=== PATIENT | female | born 1985 | race American Indian/Alaskan Native ===

== ENCOUNTER 2018-08-18 09:54 | Inpatient (IN) | payer MEDICAID ==
[2018-08-18 11:17] LABS: Hematocrit 36.9 % (30.3-42.9); Hemoglobin 12.5 gm/dl (10.1-14.3); Mean Corpuscular HGB Conc 34 % (30-34); Mean Corpuscular Volume 89 fl (79-97); Platelet Count 307 K/mm3 (140-440); Red Blood Count 4.16 M/mm3 (3.65-5.03); Red Cell Distribution Width 14.3 % (13.2-15.2)
[2018-08-18 12:13] LABS: Alanine Aminotransferase 17 units/L (7-56); Uric Acid 5.8 mg/dL (3.5-7.6)
[2018-08-18 12:46] LABS: Creatinine 24 Hour,Urine 1.9 (0.8-2.8); Creatinine,Urine 92.4 mg/dL (0.1-20.0)
[2018-08-18] MEDS ORDERED: ZOFRAN IV PRN (14:13)
[2018-08-18] MEDS ORDERED: MAGNESIUM SULFATE 4GM/100ML 4 GM/100 ML BAG IV ONE (14:13)
[2018-08-18] MEDS ORDERED: AMBIEN PO PRN (14:13)
[2018-08-18] MEDS ORDERED: DEEP SEA NS PRN (14:13)
[2018-08-18] MEDS ORDERED: COLACE PO PRN (14:13)
[2018-08-18] MEDS: LACTATED RINGERS 1,000 ML IV SCH (17:01)
[2018-08-18] MEDS: CELESTONE SOLUSPAN IM SCH (17:03)
[2018-08-18] MEDS: MAGNESIUM SULFATE 40GM/1000ML 40 GM/1,000 ML BAG IV SCH (17:22)
--- NOTE | 2018-08-18 18:41 | History and Physical Report ---
History of Present Illness Date of examination: 08/18/18 Date of admission: 08/18/18 14:13 Chief complaint: sent from office for elevated BP, 24 hr urine return to be sent to lab History of present illness: Menstrual History Regularity: regular Duration: 5 LMP: 12/23/2017 LMP reliability: definite LMP character: normal test type: urine test Date: 07/04/2018 BC at conception: none EDC Calculations LMP: 09/29/2018 EDC Confirmation: 09/29/2018 Gestational Age: 27 4/7 weeks Past History : 2 Term Births: 1 Premature Births: 0 Living Children: 1 Para: 1 Mult. Births: 0 Prev : 0 Aborta: 0 Elect. Ab: 0 Spont. Ab: 0 Ectopics: 0 # 1 Delivery date: 10/28/2007 Weeks Gestation: 38 labor: no Delivery type: Hours of labor: 48 Anesthesia type: epidural Delivery location: [place] Infant Sex: Female weight: 6-6 Name: Deanna Comments: Induction for abnormal testing Past Medical History: Negative Past Medical History Past Surgical History: Cholecystectomy (2008) Family History Summary: Other family member - Has No Family History of Ovarvian Cancer - Entered On: 07/04/2018 Other family member - Has No Family History of Colon Cancer - Entered On: 019 Other family member - Has Family History of Pancreatic Cancer - Entered On: 07/04/2018 Other family member - Has Family History of Hypertension - Entered On: 07/04/2018 Other family member - Has Family History of Diabetes - Entered On: 07/04/2018 Other family member - Has Family History of Depression - Entered On: 07/04/2018 Other family member - Has Family History of Coronary Heart Disease - Entered On: 07/04/2018 Other family member - Has Family History Breast Cancer - Entered On: 07/04/2018 General Comments - FH: Lupus Social History: Marital Status: Single Children: 1 Occupation: unemployed daycare Risk Factors: Smoked Tobacco Use: Current every day smoker Cigarettes: Yes -- 1 pack(s) per day, Year started: 2006 Years smoked: 12 Counseled to quit/cut down: yes Drug use: no HIV high-risk behavior: low risk Alcohol use: yes Drinks per day: social Dietary Counseling: pn yes PAP Smear History: Date of Last PAP Smear: 02/20/2018 Results: normal Past Medical History Surgery (Non-baby counselor): Cholecystectomy (2008) Abnormal PAP: positive, ?cryo Uterine Anomaly: negative Family Hx: Lupus Social Hx: Marital Status: Single Children: 1 Occupation: unemployed daycare Infection History Hx of STD: none HIV Risk Eval: low risk Personal hx. of genital herpes: no Genetic History Congenital Heart Defect: Mom: no Dad: no Porter Disease: Mom: no Dad: no Thalassemia Mom: no Dad: no Neural Tube Defect Mom: no Dad: no Down's Syndrome Mom: no Dad: no Rajinder-Sachs Mom: no Dad: no Sickle Cell Disease/Trait Mom: no Dad: yes Hemophilia Mom: no Dad: no Muscular Dystrophy Mom: no Dad: no Cystic Fibrosis Mom: no Dad: no [place] Chorea Mom: no Dad: no Mental Retardation Mom: no Dad: no Fragile X Mom: no Dad: no Other Genetic/Chromosomal Disorder Mom: no Dad: no Child w/other defect Mom: no Dad: no Enviromental Exposures Xray Exposure: no Medication, drug, or alcohol use since LMP: yes Exposure to Cat Liter: yes Occupational Exposure to Children: daycare Current Allergies (reviewed today): No known allergies Past History Past Medical History: other (see HPI) Past Surgical History: other (see HPI) [employer] History: other (see HPI) Family/Genetic History: other (see HPI) Social history: other (see HPI) - Obstetrical History : 3 Medications and Allergies Allergies Allergy/AdvReac Type Severity Reaction Status Date / Time No Known Allergies Allergy Unverified 08/18/18 10:05 Active Meds: Active Medications Acetaminophen (Tylenol) 650 mg PO Q4H PRN PRN Reason: Pain MILD(1-3)/Fever >100.5/PEPPER Betamethasone Acet/Betameth SodPhos (Celestone Soluspan) 12 mg IM Q24H CHAPARRITA Stop: 08/19/18 15:01 Last Admin: 08/18/18 17:03 Dose: 12 mg Documented by: Docusate Sodium (Colace) 100 mg PO Q12H PRN PRN Reason: Constipation Lactated Ringer's (Lactated Ringers) 1,000 mls @ 125 mls/hr IV DIRECT CHAPARRITA Last Admin: 08/18/18 17:01 Dose: 125 mls/hr Documented by: Magnesium Sulfate (Magnesium Sulfate 40gm/1000ml) 40 gm in 1,000 mls @ 50 mls/hr IV DIRECT CHAPARRITA Last Admin: 08/18/18 17:22 Dose: 2 gm/hr, 50 mls/hr Documented by: Multivitamins/Iron/Calcium ( Vitamin) 1 each PO QDAY CHAPARRITA Ondansetron HCl (Zofran) 4 mg IV Q6H PRN PRN Reason: Nausea And Vomiting Sodium Chloride (Deep Sea) 2 spray NS Q4H PRN PRN Reason: Congestion Zolpidem Tartrate (Ambien) 10 mg PO ONCE PRN PRN Reason: Sleep Stop: 08/18/18 23:59 Review of Systems All systems: negative - Vital Signs Vital signs: Vital Signs Pulse BP 77 172/100 08/18/18 10:45 08/18/18 10:45 Temp Pulse Resp BP Pulse Ox 72 171/93 99 08/18/18 18:37 08/18/18 18:27 08/18/18 18:37 - Physical Exam Breasts: Cardiovascular: Regular rate, Normal S1, Normal S2 Lungs: Positive: Clear to auscultation, Normal air movement Abdomen: Positive: normal appearance, soft, normal bowel sounds. Negative: distention, tenderness Genitourinary (Female): Positive: normal external genitalia, normal perenium Vulva: both: normal Vagina: Positive: normal moisture. Negative: discharge Cervix: Negative: lesion, discharge Uterus: Positive: normal size, normal contour Adnexa: both: normal Anus/Rectum: Positive: normal perianal skin. Negative: rectal mass, hemorrhoids Extremities: Positive: normal Deep Tendon Reflex Grade: Normal +2 - Obstetrical FHR: auscultation normal Uterine Contraction Monitor Mode: External Uterine Contraction Pattern: Absent Results Result Diagrams: 08/18/18 10:37 08/18/18 10:37 Abnormal lab results 08/18/18 08/18/18 Range/Units 08:26 10:37 Creatinine 0.6 L (0.7-1.2) mg/dL Urine Creatinine 92.4 H (0.1-20.0) mg/dL Ur Total Protein 24 Hr 420.00 H (2-200) mg/dL Urine Total Protein 20 H (5-11.8) mg/dL All other labs normal. Assessment and Plan Patient sent from office visit for elevated BP in office and return of 24 hour urine collection to be resulted in lab. 24 hr protein level elevated. Pt ad mitted for BMZ series, magnesium for neuroprotection. MFM consult input. Patient reports feeling well, she denies any complaints, PEPPER ,visual disturbances, RUQ pain, epigastric pain, contractions, LOF< or VB +FM. Abdomen palpates soft. No contractions on TOCO. FHTs category 1 at this time. Some elevated BPs noted. Consult with Dr. Latham, will order one time dose of IV hydralazine, if BP remains elevates, will reevaluate, but likely begin cervidil induction. Reviewed current POC with patient, questions encouraged and answered. Will continue to monitor.
[2018-08-18] MEDS ORDERED: APRESOLINE IV ONE ×2 (19:01→21:45)
--- NOTE | 2018-08-18 23:43 | Ultrasound Report ---
Limited obstetric ultrasound INDICATION: Assess position FINDINGS: 2 images were obtained. Single viable intrauterine is seen, heart rate is 152. Fe tiera lie is cephalic. CONCLUSION: lie is cephalic. Signer Name: Srinivasa Roberts MD Signed: 08/18/2018 11:39 PM Workstation Name: [id number]
[2018-08-19] MEDS ORDERED: CERVIDIL VG ONE (03:00)
--- NOTE | 2018-08-19 03:00 | Event Note ---
Date: 08/19/18 BPs remain elevated despite one time dose of IV hydralazine ordered by Dr. Latham. Pt remains asymptomatic, she denies any PEPPER, visual disturbances, PUQ or epigastric pain. Assessment WNL. Order for cervidil induction to begin per Dr. Latham. DWP updated POC. She agrees to proceed with cervidil.
--- NOTE | 2018-08-19 03:13 | Event Note ---
Date: 08/19/18 reviewed recent BPs with Dr. Latham, order to hold cervidil for now d/t BPs WNL, pt asymptomatic.
--- NOTE | 2018-08-19 07:53 | Progress Note ---
Assessment and Plan 33 y/o @ 34+1 with limited care. pre-e dx by 24hr urine returned to hospital yesterday, TP 420. b/p's 130-150's/70-80's. Pt denies hx HTN. Most recent mag sulfate level 4.4. Pt denies epigastric pain or visual changes, she c/o PEPPER rates 2/10. pt states she feels its r/t lack of sleep. She has not had dose of tylenol. Will give dose and see if PEPPER resolves. Blood work reviewed NL. AMFM consult ordered, RN aware. Continue current management and await [facility] recommendations. - Patient Problems (1) 34 weeks gestation of Current Visit: Yes Status: Acute (2) BMI 50.0-59.9, adult Current Visit: Yes Status: Acute (3) Pre-eclampsia in third trimester Current Visit: Yes Status: Acute Plan to address problem: AMFM consult ordered Subjective - Subjective Date of service: 08/19/18 Principal diagnosis: IUP 34+1; Pre-e, Mag Patient reports: new complaints (PEPPER 2/10), movement normal, no loss of fluid, no vaginal bleeding, no contractions Objective - Vital Signs Vital Signs: Vital Signs - 12hr 08/18/18 08/18/18 08/18/18 19:56 20:01 20:06 Temperature Pulse Rate 85 90 79 Respiratory Rate Blood Pressure Blood Pressure [Left] O2 Sat by Pulse 98 99 100 Oximetry 08/18/18 08/18/18 08/18/18 20:11 20:25 20:27 Temperature 97.9 F Pulse Rate 79 72 77 Respiratory 20 Rate Blood Pressure 177/93 Blood Pressure 177/93 [Left] O2 Sat by Pulse 98 99 97 Oximetry 08/18/18 08/18/18 08/18/18 20:30 20:35 20:40 Temperature Pulse Rate 87 75 76 Respiratory Rate Blood Pressure 176/100 Blood Pressure [Left] O2 Sat by Pulse 99 98 98 Oximetry 08/18/18 08/18/18 08/18/18 20:45 20:50 20:55 Temperature Pulse Rate 83 77 75 Respiratory Rate Blood Pressure Blood Pressure [Left] O2 Sat by Pulse 98 97 97 Oximetry 08/18/18 08/18/18 08/18/18 20:57 21:00 21:05 Temperature Pulse Rate 83 79 78 Respiratory Rate Blood Pressure 170/76 Blood Pressure [Left] O2 Sat by Pulse 88 97 97 Oximetry 08/18/18 08/18/18 08/18/18 21:10 21:15 21:20 Temperature Pulse Rate 76 75 81 Respiratory Rate Blood Pressure Blood Pressure [Left] O2 Sat by Pulse 97 97 98 Oximetry 08/18/18 08/18/18 08/18/18 21:25 21:26 21:27 Temperature Pulse Rate 81 73 73 Respiratory 20 Rate Blood Pressure 141/79 Blood Pressure 141/79 [Left] O2 Sat by Pulse 97 92 Oximetry 08/18/18 08/18/18 08/18/18 21:30 21:35 21:40 Temperature Pulse Rate 87 73 78 Respiratory Rate Blood Pressure Blood Pressure [Left] O2 Sat by Pulse 98 97 97 Oximetry 08/18/18 08/18/18 08/18/18 21:45 21:49 21:50 Temperature Pulse Rate 97 H 108 H 70 Respiratory Rate Blood Pressure Blood Pressure [Left] O2 Sat by Pulse 97 94 96 Oximetry 08/18/18 08/18/18 08/18/18 21:52 21:55 21:56 Temperature Pulse Rate 75 78 75 Respiratory Rate Blood Pressure 166/83 158/79 Blood Pressure [Left] O2 Sat by Pulse 96 Oximetry 08/18/18 08/18/18 08/18/18 22:00 22:05 22:10 Temperature Pulse Rate 80 83 78 Respiratory Rate Blood Pressure Blood Pressure [Left] O2 Sat by Pulse 96 97 98 Oximetry 08/18/18 08/18/18 08/18/18 22:15 22:20 22:25 Temperature Pulse Rate 84 82 78 Respiratory Rate Blood Pressure Blood Pressure [Left] O2 Sat by Pulse 97 97 97 Oximetry 08/18/18 08/18/18 08/18/18 22:27 22:30 22:35 Temperature Pulse Rate 86 85 84 Respiratory Rate Blood Pressure 165/89 Blood Pressure [Left] O2 Sat by Pulse 90 98 98 Oximetry 08/18/18 08/18/18 08/18/18 22:40 22:45 22:50 Temperature Pulse Rate 80 86 78 Respiratory Rate Blood Pressure Blood Pressure [Left] O2 Sat by Pulse 97 98 97 Oximetry 08/18/18 08/18/18 08/18/18 22:55 22:57 23:00 Temperature Pulse Rate 75 75 81 Respiratory Rate Blood Pressure 175/82 Blood Pressure 175/82 [Left] O2 Sat by Pulse 98 97 97 Oximetry 08/18/18 08/18/18 08/18/18 23:05 23:08 23:10 Temperature Pulse Rate 89 73 70 Respiratory Rate Blood Pressure Blood Pressure [Left] O2 Sat by Pulse 97 93 96 Oximetry 08/18/18 08/18/18 08/18/18 23:15 23:20 23:22 Temperature Pulse Rate 81 77 82 Respiratory Rate Blood Pressure Blood Pressure [Left] O2 Sat by Pulse 96 96 94 Oximetry 08/18/18 08/18/18 08/18/18 23:25 23:27 23:30 Temperature Pulse Rate 67 68 79 Respiratory Rate Blood Pressure 167/82 Blood Pressure [Left] O2 Sat by Pulse 99 97 Oximetry 08/18/18 08/18/18 08/18/18 23:35 23:40 23:57 Temperature 98.2 F Pulse Rate 80 79 80 Respiratory 20 Rate Blood Pressure 176/83 Blood Pressure 176/83 [Left] O2 Sat by Pulse 96 96 Oximetry 08/18/18 08/19/18 08/19/18 23:58 00:04 00:09 Temperature Pulse Rate 83 82 76 Respiratory Rate Blood Pressure 176/83 170/81 155/74 Blood Pressure [Left] O2 Sat by Pulse Oximetry 08/19/18 08/19/18 08/19/18 00:13 00:20 00:27 Temperature Pulse Rate 77 85 80 Respiratory Rate Blood Pressure 159/74 166/79 171/83 Blood Pressure [Left] O2 Sat by Pulse Oximetry 08/19/18 08/19/18 08/19/18 00:38 00:41 00:46 Temperature Pulse Rate 82 89 77 Respiratory Rate Blood Pressure 170/81 Blood Pressure [Left] O2 Sat by Pulse 97 97 Oximetry 08/19/18 08/19/18 08/19/18 00:51 00:56 00:57 Temperature Pulse Rate 79 80 82 Respiratory Rate Blood Pressure 175/84 Blood Pressure [Left] O2 Sat by Pulse 97 88 Oximetry 08/19/18 08/19/18 08/19/18 01:01 01:06 01:11 Temperature Pulse Rate 84 93 H 86 Respiratory Rate Blood Pressure Blood Pressure [Left] O2 Sat by Pulse 97 97 97 Oximetry 08/19/18 08/19/18 08/19/18 01:13 01:16 01:21 Temperature Pulse Rate 85 84 87 Respiratory Rate Blood Pressure 141/81 Blood Pressure 141/81 [Left] O2 Sat by Pulse 97 97 97 Oximetry 08/19/18 08/19/18 08/19/18 01:26 01:31 01:36 Temperature Pulse Rate 88 92 H 93 H Respiratory Rate Blood Pressure 154/82 Blood Pressure [Left] O2 Sat by Pulse 91 97 97 Oximetry 08/19/18 08/19/18 08/19/18 01:41 01:46 01:51 Temperature Pulse Rate 88 91 H 89 Respiratory Rate Blood Pressure Blood Pressure [Left] O2 Sat by Pulse 97 97 94 Oximetry 08/19/18 08/19/18 08/19/18 01:52 01:56 02:01 Temperature Pulse Rate 86 95 H 87 Respiratory Rate Blood Pressure 143/81 153/81 Blood Pressure 143/81 [Left] O2 Sat by Pulse 95 95 97 Oximetry 08/19/18 08/19/18 08/19/18 02:06 02:11 02:16 Temperature Pulse Rate 92 H 89 78 Respiratory Rate Blood Pressure Blood Pressure [Left] O2 Sat by Pulse 98 98 95 Oximetry 08/19/18 08/19/18 08/19/18 02:21 02:26 02:31 Temperature Pulse Rate 82 86 83 Respiratory Rate Blood Pressure 151/77 Blood Pressure [Left] O2 Sat by Pulse 96 92 96 Oximetry 08/19/18 08/19/18 08/19/18 02:36 02:41 02:46 Temperature Pulse Rate 82 81 79 Respiratory Rate Blood Pressure Blood Pressure [Left] O2 Sat by Pulse 97 97 96 Oximetry 08/19/18 08/19/18 08/19/18 02:51 02:52 02:56 Temperature Pulse Rate 91 H 90 84 Respiratory Rate Blood Pressure 144/73 Blood Pressure [Left] O2 Sat by Pulse 94 94 89 Oximetry 08/19/18 08/19/18 08/19/18 03:01 03:06 03:11 Temperature Pulse Rate 91 H 95 H 92 H Respiratory Rate Blood Pressure Blood Pressure [Left] O2 Sat by Pulse 95 95 95 Oximetry 08/19/18 08/19/18 08/19/18 03:16 03:21 03:26 Temperature Pulse Rate 92 H 94 H 98 H Respiratory Rate Blood Pressure Blood Pressure [Left] O2 Sat by Pulse 95 95 96 Oximetry 08/19/18 08/19/18 08/19/18 03:31 03:36 03:41 Temperature Pulse Rate 89 94 H 91 H Respiratory Rate Blood Pressure Blood Pressure [Left] O2 Sat by Pulse 97 97 97 Oximetry 08/19/18 08/19/18 08/19/18 03:46 03:51 03:56 Temperature Pulse Rate 93 H 94 H 91 H Respiratory Rate Blood Pressure Blood Pressure [Left] O2 Sat by Pulse 97 96 96 Oximetry 08/19/18 08/19/18 08/19/18 04:01 04:06 04:11 Temperature Pulse Rate 94 H 91 H 85 Respiratory Rate Blood Pressure Blood Pressure [Left] O2 Sat by Pulse 96 97 98 Oximetry 08/19/18 08/19/18 08/19/18 04:16 04:21 04:23 Temperature Pulse Rate 83 86 68 Respiratory Rate Blood Pressure Blood Pressure [Left] O2 Sat by Pulse 98 98 89 Oximetry 08/19/18 08/19/18 08/19/18 04:27 04:28 04:32 Temperature 98.1 F Pulse Rate 86 74 74 Respiratory 18 Rate Blood Pressure 149/79 Blood Pressure 149/79 [Left] O2 Sat by Pulse 93 98 98 Oximetry 08/19/18 08/19/18 08/19/18 04:37 04:42 04:47 Temperature Pulse Rate 75 81 80 Respiratory Rate Blood Pressure Blood Pressure [Left] O2 Sat by Pulse 98 98 98 Oximetry 08/19/18 08/19/18 08/19/18 04:52 04:57 05:02 Temperature Pulse Rate 77 78 82 Respiratory Rate Blood Pressure Blood Pressure [Left] O2 Sat by Pulse 98 98 97 Oximetry 08/19/18 08/19/18 08/19/18 05:07 05:12 05:17 Temperature Pulse Rate 85 78 88 Respiratory Rate Blood Pressure Blood Pressure [Left] O2 Sat by Pulse 97 97 97 Oximetry 08/19/18 08/19/18 08/19/18 05:22 05:27 05:32 Temperature Pulse Rate 85 77 83 Respiratory Rate Blood Pressure 139/76 Blood Pressure 139/76 [Left] O2 Sat by Pulse 98 97 98 Oximetry 08/19/18 08/19/18 08/19/18 05:37 05:42 05:47 Temperature Pulse Rate 82 79 83 Respiratory Rate Blood Pressure Blood Pressure [Left] O2 Sat by Pulse 98 98 98 Oximetry 08/19/18 08/19/18 08/19/18 05:52 05:57 06:02 Temperature Pulse Rate 85 67 86 Respiratory Rate Blood Pressure Blood Pressure [Left] O2 Sat by Pulse 98 98 98 Oximetry 08/19/18 08/19/18 08/19/18 06:13 06:18 06:23 Temperature Pulse Rate 76 78 81 Respiratory Rate Blood Pressure Blood Pressure [Left] O2 Sat by Pulse 98 96 96 Oximetry 08/19/18 08/19/18 08/19/18 06:28 07:34 07:39 Temperature Pulse Rate 76 85 87 Respiratory Rate Blood Pressure 147/78 146/73 Blood Pressure [Left] O2 Sat by Pulse 100 100 Oximetry 08/19/18 08/19/18 07:44 07:49 Temperature Pulse Rate 81 82 Respiratory Rate Blood Pressure Blood Pressure [Left] O2 Sat by Pulse 98 98 Oximetry - Exam Breasts: normal Cardiovascular: Regular rate Lungs: Clear to auscultation Abdomen: Present: normal appearance, soft, normal bowel sounds Vulva: both: normal Uterus: Present: normal FHR: auscultation normal, category 1 Uterine Contraction Monitor Mode: External Uterine Contraction Pattern: Absent Uterine Tone Measurement Phase: Resting Extremities: normal Deep Tendon Reflex Grade: Normal +2 (neg clonus) - Labs Labs: Abnormal Labs 08/18/18 08/18/18 08/18/18 08:26 10:37 23:06 Creatinine 0.6 L Magnesium 4.20 H Urine Creatinine 92.4 H Ur Total Protein 24 Hr 420.00 H Urine Total Protein 20 H 08/19/18 05:21 Creatinine Magnesium 4.40 H Urine Creatinine Ur Total Protein 24 Hr Urine Total Protein Laboratory Results - last 24 hr 08/18/18 08/18/18 08/18/18 08:26 10:37 10:37 WBC 9.2 RBC 4.16 Hgb 12.5 Hct 36.9 MCV 89 MCH 30 MCHC 34 RDW 14.3 Plt Count 307 Creatinine 0.6 L Estimated GFR > 60 Uric Acid 5.8 Magnesium AST 16 ALT 17 Lactate Dehydrogenase 168 Urine Total Volume 2100 Urine Creatinine 92.4 H Ur Creatinine 24 Hour 1.9 Ur Total Protein 24 Hr 420.00 H Urine Total Protein 20 H Blood Type Antibody Screen 08/18/18 08/18/18 08/19/18 23:06 23:06 05:21 WBC RBC Hgb Hct MCV MCH MCHC RDW Plt Count Creatinine Estimated GFR Uric Acid Magnesium 4.20 H 4.40 H AST ALT Lactate Dehydrogenase Urine Total Volume Urine Creatinine Ur Creatinine 24 Hour Ur Total Protein 24 Hr Urine Total Protein Blood Type A POSITIVE Antibody Screen Negative
[2018-08-19] MEDS: TYLENOL PO PRN ×2 (08:10→22:41)
[2018-08-19] MEDS ORDERED: CELESTONE SOLUSPAN IM NR ×2 (09:56→17:00)
--- NOTE | 2018-08-19 09:56 | Progress Note ---
Assessment and Plan - Patient Problems (1) 34 weeks gestation of Current Visit: Yes Status: Acute (2) BMI 50.0-59.9, adult Current Visit: Yes Status: Acute (3) Pre-eclampsia in third trimester Current Visit: Yes Status: Acute Plan to address problem: With severe features(PEPPER and elevate BP's) will proceed with induction. Will give second dose of steriods now. Diagnosis and plan of care explained, questions encouraged and answered, she voiced understanding and agrees with plan of care. Subjective - Subjective Date of service: 08/19/18 Principal diagnosis: IUP 34+1; Preeclampsia with severe features Interval history: PEPPER better. Per patient no history of CHTN, BP's' have been normal thru . She denies RUQ pain or visual changes Patient reports: new complaints (PEPPER 03/23), movement normal, no loss of fluid, no vaginal bleeding, no contractions Objective - Vital Signs Vital Signs: Vital Signs - 12hr 08/18/18 08/18/18 08/18/18 22:00 22:05 22:10 Temperature Pulse Rate 80 83 78 Respiratory Rate Blood Pressure Blood Pressure [Left] O2 Sat by Pulse 96 97 98 Oximetry 08/18/18 08/18/18 08/18/18 22:15 22:20 22:25 Temperature Pulse Rate 84 82 78 Respiratory Rate Blood Pressure Blood Pressure [Left] O2 Sat by Pulse 97 97 97 Oximetry 08/18/18 08/18/18 08/18/18 22:27 22:30 22:35 Temperature Pulse Rate 86 85 84 Respiratory Rate Blood Pressure 165/89 Blood Pressure [Left] O2 Sat by Pulse 90 98 98 Oximetry 08/18/18 08/18/18 08/18/18 22:40 22:45 22:50 Temperature Pulse Rate 80 86 78 Respiratory Rate Blood Pressure Blood Pressure [Left] O2 Sat by Pulse 97 98 97 Oximetry 08/18/18 08/18/18 08/18/18 22:55 22:57 23:00 Temperature Pulse Rate 75 75 81 Respiratory Rate Blood Pressure 175/82 Blood Pressure 175/82 [Left] O2 Sat by Pulse 98 97 97 Oximetry 08/18/18 08/18/18 08/18/18 23:05 23:08 23:10 Temperature Pulse Rate 89 73 70 Respiratory Rate Blood Pressure Blood Pressure [Left] O2 Sat by Pulse 97 93 96 Oximetry 08/18/18 08/18/18 08/18/18 23:15 23:20 23:22 Temperature Pulse Rate 81 77 82 Respiratory Rate Blood Pressure Blood Pressure [Left] O2 Sat by Pulse 96 96 94 Oximetry 08/18/18 08/18/18 08/18/18 23:25 23:27 23:30 Temperature Pulse Rate 67 68 79 Respiratory Rate Blood Pressure 167/82 Blood Pressure [Left] O2 Sat by Pulse 99 97 Oximetry 08/18/18 08/18/18 08/18/18 23:35 23:40 23:57 Temperature 98.2 F Pulse Rate 80 79 80 Respiratory 20 Rate Blood Pressure 176/83 Blood Pressure 176/83 [Left] O2 Sat by Pulse 96 96 Oximetry 08/18/18 08/19/18 08/19/18 23:58 00:04 00:09 Temperature Pulse Rate 83 82 76 Respiratory Rate Blood Pressure 176/83 170/81 155/74 Blood Pressure [Left] O2 Sat by Pulse Oximetry 08/19/18 08/19/18 08/19/18 00:13 00:20 00:27 Temperature Pulse Rate 77 85 80 Respiratory Rate Blood Pressure 159/74 166/79 171/83 Blood Pressure [Left] O2 Sat by Pulse Oximetry 08/19/18 08/19/18 08/19/18 00:38 00:41 00:46 Temperature Pulse Rate 82 89 77 Respiratory Rate Blood Pressure 170/81 Blood Pressure [Left] O2 Sat by Pulse 97 97 Oximetry 08/19/18 08/19/18 08/19/18 00:51 00:56 00:57 Temperature Pulse Rate 79 80 82 Respiratory Rate Blood Pressure 175/84 Blood Pressure [Left] O2 Sat by Pulse 97 88 Oximetry 08/19/18 08/19/18 08/19/18 01:01 01:06 01:11 Temperature Pulse Rate 84 93 H 86 Respiratory Rate Blood Pressure Blood Pressure [Left] O2 Sat by Pulse 97 97 97 Oximetry 08/19/18 08/19/18 08/19/18 01:13 01:16 01:21 Temperature Pulse Rate 85 84 87 Respiratory Rate Blood Pressure 141/81 Blood Pressure 141/81 [Left] O2 Sat by Pulse 97 97 97 Oximetry 08/19/18 08/19/18 08/19/18 01:26 01:31 01:36 Temperature Pulse Rate 88 92 H 93 H Respiratory Rate Blood Pressure 154/82 Blood Pressure [Left] O2 Sat by Pulse 91 97 97 Oximetry 08/19/18 08/19/18 08/19/18 01:41 01:46 01:51 Temperature Pulse Rate 88 91 H 89 Respiratory Rate Blood Pressure Blood Pressure [Left] O2 Sat by Pulse 97 97 94 Oximetry 08/19/18 08/19/18 08/19/18 01:52 01:56 02:01 Temperature Pulse Rate 86 95 H 87 Respiratory Rate Blood Pressure 143/81 153/81 Blood Pressure 143/81 [Left] O2 Sat by Pulse 95 95 97 Oximetry 08/19/18 08/19/18 08/19/18 02:06 02:11 02:16 Temperature Pulse Rate 92 H 89 78 Respiratory Rate Blood Pressure Blood Pressure [Left] O2 Sat by Pulse 98 98 95 Oximetry 08/19/18 08/19/18 08/19/18 02:21 02:26 02:31 Temperature Pulse Rate 82 86 83 Respiratory Rate Blood Pressure 151/77 Blood Pressure [Left] O2 Sat by Pulse 96 92 96 Oximetry 08/19/18 08/19/18 08/19/18 02:36 02:41 02:46 Temperature Pulse Rate 82 81 79 Respiratory Rate Blood Pressure Blood Pressure [Left] O2 Sat by Pulse 97 97 96 Oximetry 08/19/18 08/19/18 08/19/18 02:51 02:52 02:56 Temperature Pulse Rate 91 H 90 84 Respiratory Rate Blood Pressure 144/73 Blood Pressure [Left] O2 Sat by Pulse 94 94 89 Oximetry 08/19/18 08/19/18 08/19/18 03:01 03:06 03:11 Temperature Pulse Rate 91 H 95 H 92 H Respiratory Rate Blood Pressure Blood Pressure [Left] O2 Sat by Pulse 95 95 95 Oximetry 08/19/18 08/19/18 08/19/18 03:16 03:21 03:26 Temperature Pulse Rate 92 H 94 H 98 H Respiratory Rate Blood Pressure Blood Pressure [Left] O2 Sat by Pulse 95 95 96 Oximetry 08/19/18 08/19/18 08/19/18 03:31 03:36 03:41 Temperature Pulse Rate 89 94 H 91 H Respiratory Rate Blood Pressure Blood Pressure [Left] O2 Sat by Pulse 97 97 97 Oximetry 07/09/19 07/09/19 07/09/19 03:46 03:51 03:56 Temperature Pulse Rate 93 H 94 H 91 H Respiratory Rate Blood Pressure Blood Pressure [Left] O2 Sat by Pulse 97 96 96 Oximetry 08/19/18 08/19/18 08/19/18 04:01 04:06 04:11 Temperature Pulse Rate 94 H 91 H 85 Respiratory Rate Blood Pressure Blood Pressure [Left] O2 Sat by Pulse 96 97 98 Oximetry 08/19/18 08/19/18 08/19/18 04:16 04:21 04:23 Temperature Pulse Rate 83 86 68 Respiratory Rate Blood Pressure Blood Pressure [Left] O2 Sat by Pulse 98 98 89 Oximetry 08/19/18 08/19/18 08/19/18 04:27 04:28 04:32 Temperature 98.1 F Pulse Rate 86 74 74 Respiratory 18 Rate Blood Pressure 149/79 Blood Pressure 149/79 [Left] O2 Sat by Pulse 93 98 98 Oximetry 08/19/18 08/19/18 08/19/18 04:37 04:42 04:47 Temperature Pulse Rate 75 81 80 Respiratory Rate Blood Pressure Blood Pressure [Left] O2 Sat by Pulse 98 98 98 Oximetry 08/19/18 08/19/18 08/19/18 04:52 04:57 05:02 Temperature Pulse Rate 77 78 82 Respiratory Rate Blood Pressure Blood Pressure [Left] O2 Sat by Pulse 98 98 97 Oximetry 08/19/18 08/19/18 08/19/18 05:07 05:12 05:17 Temperature Pulse Rate 85 78 88 Respiratory Rate Blood Pressure Blood Pressure [Left] O2 Sat by Pulse 97 97 97 Oximetry 08/19/18 08/19/18 08/19/18 05:22 05:27 05:32 Temperature Pulse Rate 85 77 83 Respiratory Rate Blood Pressure 139/76 Blood Pressure 139/76 [Left] O2 Sat by Pulse 98 97 98 Oximetry 08/19/18 08/19/18 08/19/18 05:37 05:42 05:47 Temperature Pulse Rate 82 79 83 Respiratory Rate Blood Pressure Blood Pressure [Left] O2 Sat by Pulse 98 98 98 Oximetry 08/19/18 08/19/18 08/19/18 05:52 05:57 06:02 Temperature Pulse Rate 85 67 86 Respiratory Rate Blood Pressure Blood Pressure [Left] O2 Sat by Pulse 98 98 98 Oximetry 08/19/18 08/19/18 08/19/18 06:13 06:18 06:23 Temperature Pulse Rate 76 78 81 Respiratory Rate Blood Pressure Blood Pressure [Left] O2 Sat by Pulse 98 96 96 Oximetry 08/19/18 08/19/18 08/19/18 06:28 07:34 07:35 Temperature 98.4 F Pulse Rate 76 85 Respiratory 20 Rate Blood Pressure 147/78 146/73 Blood Pressure [Left] O2 Sat by Pulse 100 99 Oximetry 08/19/18 08/19/18 08/19/18 07:39 07:44 07:49 Temperature Pulse Rate 87 81 82 Respiratory Rate Blood Pressure Blood Pressure [Left] O2 Sat by Pulse 100 98 98 Oximetry 08/19/18 08/19/18 08/19/18 07:54 07:59 08:04 Temperature Pulse Rate 80 82 83 Respiratory Rate Blood Pressure Blood Pressure [Left] O2 Sat by Pulse 98 98 98 Oximetry 08/19/18 08/19/18 08/19/18 08:09 08:14 08:19 Temperature Pulse Rate 81 82 79 Respiratory Rate Blood Pressure Blood Pressure [Left] O2 Sat by Pulse 98 96 98 Oximetry 08/19/18 08/19/18 08/19/18 08:24 08:27 08:29 Temperature Pulse Rate 83 86 85 Respiratory Rate Blood Pressure 156/73 Blood Pressure [Left] O2 Sat by Pulse 98 90 97 Oximetry 08/19/18 08/19/18 08/19/18 08:34 08:39 08:44 Temperature Pulse Rate 77 84 81 Respiratory Rate Blood Pressure Blood Pressure [Left] O2 Sat by Pulse 97 97 97 Oximetry 08/19/18 08/19/18 08/19/18 08:49 08:54 08:59 Temperature Pulse Rate 76 84 80 Respiratory Rate Blood Pressure Blood Pressure [Left] O2 Sat by Pulse 98 97 97 Oximetry 08/19/18 08/19/18 08/19/18 09:04 09:09 09:14 Temperature Pulse Rate 80 83 60 Respiratory Rate Blood Pressure Blood Pressure [Left] O2 Sat by Pulse 97 97 73 L Oximetry 08/19/18 08/19/18 08/19/18 09:19 09:20 09:25 Temperature Pulse Rate 67 68 76 Respiratory Rate Blood Pressure Blood Pressure [Left] O2 Sat by Pulse 80 L 73 L 99 Oximetry 08/19/18 08/19/18 08/19/18 09:28 09:31 09:36 Temperature Pulse Rate 92 H 78 84 Respiratory Rate Blood Pressure 177/88 Blood Pressure [Left] O2 Sat by Pulse 91 99 97 Oximetry 08/19/18 08/19/18 08/19/18 09:38 09:39 09:40 Temperature Pulse Rate 62 80 80 Respiratory Rate Blood Pressure 171/92 Blood Pressure [Left] O2 Sat by Pulse 87 99 Oximetry 08/19/18 08/19/18 09:45 09:50 Temperature Pulse Rate 77 82 Respiratory Rate Blood Pressure 146/67 Blood Pressure [Left] O2 Sat by Pulse 99 100 Oximetry - Exam Breasts: deferred Cardiovascular: Regular rate Lungs: Clear to auscultation, Normal air movement Abdomen: Present: normal appearance (obese), soft. Absent: tenderness Vulva: both: normal Uterus: Present: fundal height above umbilicus. Absent: tenderness FHR: category 1 Cervical Dilatation: 2 Cervical Effacement Percentage: 30 station: -2 Uterine Contraction Pattern: Absent Extremities: normal Deep Tendon Reflex Grade: Normal +2 (negative clonus) - Labs Labs: Abnormal Labs 08/18/18 08/18/18 08/18/18 08:26 10:37 23:06 Creatinine 0.6 L Magnesium 4.20 H Urine Creatinine 92.4 H Ur Total Protein 24 Hr 420.00 H Urine Total Protein 20 H 08/19/18 05:21 Creatinine Magnesium 4.40 H Urine Creatinine Ur Total Protein 24 Hr Urine Total Protein Laboratory Results - last 24 hr 08/18/18 08/18/18 08/18/18 08:26 10:37 10:37 WBC 9.2 RBC 4.16 Hgb 12.5 Hct 36.9 MCV 89 MCH 30 MCHC 34 RDW 14.3 Plt Count 307 Creatinine 0.6 L Estimated GFR > 60 Uric Acid 5.8 Magnesium AST 16 ALT 17 Lactate Dehydrogenase 168 Urine Total Volume 2100 Urine Creatinine 92.4 H Ur Creatinine 24 Hour 1.9 Ur Total Protein 24 Hr 420.00 H Urine Total Protein 20 H Blood Type Antibody Screen 08/18/18 08/18/18 08/19/18 23:06 23:06 05:21 WBC RBC Hgb Hct MCV MCH MCHC RDW Plt Count Creatinine Estimated GFR Uric Acid Magnesium 4.20 H 4.40 H AST ALT Lactate Dehydrogenase Urine Total Volume Urine Creatinine Ur Creatinine 24 Hour Ur Total Protein 24 Hr Urine Total Protein Blood Type A POSITIVE Antibody Screen Negative
[2018-08-19] MEDS ORDERED: PITOCin/NS 30 UNIT/500ML 30 UNITS/500 ML BAG IV SCH (10:00)
[2018-08-19] MEDS: PRENATAL VITAMIN PO SCH (10:13)
[2018-08-19] MEDS: CELESTONE SOLUSPAN IM SCH (10:37)
[2018-08-19] MEDS ORDERED: AMPICILLIN/NS 2 GM/100 ML 2 GM/100 ML BAG IV ONE (11:00)
--- NOTE | 2018-08-19 14:09 | Progress Note ---
Assessment and Plan discussed with pt pro/cons of AROM and IUPC placement, patient agreeable to procedure. Pt tolerated procedure well, moderate amount of clear fluid noted. IUPC placed without difficulty, tracing ctx well. RN to continue titrating pitocin as needed. may have epidural PRN. anticipate . Dr. Patton updated. - Patient Problems (1) 34 weeks gestation of Current Visit: Yes Status: Acute (2) BMI 50.0-59.9, adult Current Visit: Yes Status: Acute (3) Pre-eclampsia in third trimester Current Visit: Yes Status: Acute Subjective - Subjective Date of service: 08/19/18 Principal diagnosis: IUP 34+1; Preeclampsia with severe features Patient reports: loss of fluid, movement normal, contractions, no vaginal bleeding Objective - Vital Signs Vital Signs: Vital Signs - 12hr 08/19/18 08/19/18 08/19/18 02:11 02:16 02:21 Temperature Pulse Rate 89 78 82 Respiratory Rate Blood Pressure Blood Pressure [Left] O2 Sat by Pulse 98 95 96 Oximetry 08/19/18 08/19/18 08/19/18 02:26 02:31 02:36 Temperature Pulse Rate 86 83 82 Respiratory Rate Blood Pressure 151/77 Blood Pressure [Left] O2 Sat by Pulse 92 96 97 Oximetry 08/19/18 08/19/18 08/19/18 02:41 02:46 02:51 Temperature Pulse Rate 81 79 91 H Respiratory Rate Blood Pressure Blood Pressure [Left] O2 Sat by Pulse 97 96 94 Oximetry 08/19/18 08/19/18 08/19/18 02:52 02:56 03:01 Temperature Pulse Rate 90 84 91 H Respiratory Rate Blood Pressure 144/73 Blood Pressure [Left] O2 Sat by Pulse 94 89 95 Oximetry 08/19/18 08/19/18 08/19/18 03:06 03:11 03:16 Temperature Pulse Rate 95 H 92 H 92 H Respiratory Rate Blood Pressure Blood Pressure [Left] O2 Sat by Pulse 95 95 95 Oximetry 08/19/18 08/19/18 08/19/18 03:21 03:26 03:31 Temperature Pulse Rate 94 H 98 H 89 Respiratory Rate Blood Pressure Blood Pressure [Left] O2 Sat by Pulse 95 96 97 Oximetry 08/19/18 08/19/18 08/19/18 03:36 03:41 03:46 Temperature Pulse Rate 94 H 91 H 93 H Respiratory Rate Blood Pressure Blood Pressure [Left] O2 Sat by Pulse 97 97 97 Oximetry 08/19/18 08/19/18 08/19/18 03:51 03:56 04:01 Temperature Pulse Rate 94 H 91 H 94 H Respiratory Rate Blood Pressure Blood Pressure [Left] O2 Sat by Pulse 96 96 96 Oximetry 08/19/18 08/19/18 08/19/18 04:06 04:11 04:16 Temperature Pulse Rate 91 H 85 83 Respiratory Rate Blood Pressure Blood Pressure [Left] O2 Sat by Pulse 97 98 98 Oximetry 08/19/18 08/19/18 08/19/18 04:21 04:23 04:27 Temperature Pulse Rate 86 68 86 Respiratory Rate Blood Pressure Blood Pressure [Left] O2 Sat by Pulse 98 89 93 Oximetry 08/19/18 08/19/18 08/19/18 04:28 04:32 04:37 Temperature 98.1 F Pulse Rate 74 74 75 Respiratory 18 Rate Blood Pressure 149/79 Blood Pressure 149/79 [Left] O2 Sat by Pulse 98 98 98 Oximetry 08/19/18 08/19/18 08/19/18 04:42 04:47 04:52 Temperature Pulse Rate 81 80 77 Respiratory Rate Blood Pressure Blood Pressure [Left] O2 Sat by Pulse 98 98 98 Oximetry 08/19/18 08/19/18 08/19/18 04:57 05:02 05:07 Temperature Pulse Rate 78 82 85 Respiratory Rate Blood Pressure Blood Pressure [Left] O2 Sat by Pulse 98 97 97 Oximetry 08/19/18 08/19/18 08/19/18 05:12 05:17 05:22 Temperature Pulse Rate 78 88 85 Respiratory Rate Blood Pressure Blood Pressure [Left] O2 Sat by Pulse 97 97 98 Oximetry 08/19/18 08/19/18 08/19/18 05:27 05:32 05:37 Temperature Pulse Rate 77 83 82 Respiratory Rate Blood Pressure 139/76 Blood Pressure 139/76 [Left] O2 Sat by Pulse 97 98 98 Oximetry 08/19/18 08/19/18 08/19/18 05:42 05:47 05:52 Temperature Pulse Rate 79 83 85 Respiratory Rate Blood Pressure Blood Pressure [Left] O2 Sat by Pulse 98 98 98 Oximetry 08/19/18 08/19/18 08/19/18 05:57 06:02 06:13 Temperature Pulse Rate 67 86 76 Respiratory Rate Blood Pressure Blood Pressure [Left] O2 Sat by Pulse 98 98 98 Oximetry 08/19/18 08/19/18 08/19/18 06:18 06:23 06:28 Temperature Pulse Rate 78 81 76 Respiratory Rate Blood Pressure 147/78 Blood Pressure [Left] O2 Sat by Pulse 96 96 Oximetry 08/19/18 08/19/18 08/19/18 07:34 07:35 07:39 Temperature 98.4 F Pulse Rate 85 87 Respiratory 20 Rate Blood Pressure 146/73 Blood Pressure [Left] O2 Sat by Pulse 100 99 100 Oximetry 08/19/18 08/19/18 08/19/18 07:44 07:49 07:54 Temperature Pulse Rate 81 82 80 Respiratory Rate Blood Pressure Blood Pressure [Left] O2 Sat by Pulse 98 98 98 Oximetry 08/19/18 08/19/18 08/19/18 07:59 08:04 08:09 Temperature Pulse Rate 82 83 81 Respiratory Rate Blood Pressure Blood Pressure [Left] O2 Sat by Pulse 98 98 98 Oximetry 08/19/18 08/19/18 08/19/18 08:14 08:19 08:24 Temperature Pulse Rate 82 79 83 Respiratory Rate Blood Pressure Blood Pressure [Left] O2 Sat by Pulse 96 98 98 Oximetry 08/19/18 08/19/18 08/19/18 08:27 08:29 08:34 Temperature Pulse Rate 86 85 77 Respiratory Rate Blood Pressure 156/73 Blood Pressure [Left] O2 Sat by Pulse 90 97 97 Oximetry 08/19/18 08/19/18 08/19/18 08:39 08:44 08:49 Temperature Pulse Rate 84 81 76 Respiratory Rate Blood Pressure Blood Pressure [Left] O2 Sat by Pulse 97 97 98 Oximetry 08/19/18 08/19/18 08/19/18 08:54 08:59 09:04 Temperature Pulse Rate 84 80 80 Respiratory Rate Blood Pressure Blood Pressure [Left] O2 Sat by Pulse 97 97 97 Oximetry 08/19/18 08/19/18 08/19/18 09:09 09:14 09:19 Temperature Pulse Rate 83 60 67 Respiratory Rate Blood Pressure Blood Pressure [Left] O2 Sat by Pulse 97 73 L 80 L Oximetry 08/19/18 08/19/18 08/19/18 09:20 09:25 09:28 Temperature Pulse Rate 68 76 92 H Respiratory Rate Blood Pressure 177/88 Blood Pressure [Left] O2 Sat by Pulse 73 L 99 91 Oximetry 08/19/18 08/19/18 08/19/18 09:31 09:36 09:38 Temperature Pulse Rate 78 84 62 Respiratory Rate Blood Pressure Blood Pressure [Left] O2 Sat by Pulse 99 97 87 Oximetry 08/19/18 08/19/18 08/19/18 09:39 09:40 09:45 Temperature Pulse Rate 80 80 77 Respiratory Rate Blood Pressure 171/92 Blood Pressure [Left] O2 Sat by Pulse 99 99 Oximetry 08/19/18 08/19/18 08/19/18 09:50 09:56 10:00 Temperature Pulse Rate 82 79 79 Respiratory Rate Blood Pressure 146/67 Blood Pressure [Left] O2 Sat by Pulse 100 99 99 Oximetry 08/19/18 08/19/18 08/19/18 10:06 10:11 10:15 Temperature Pulse Rate 81 81 78 Respiratory Rate Blood Pressure Blood Pressure [Left] O2 Sat by Pulse 98 98 99 Oximetry 08/19/18 08/19/18 08/19/18 10:20 10:26 10:27 Temperature Pulse Rate 86 84 82 Respiratory Rate Blood Pressure 151/77 Blood Pressure [Left] O2 Sat by Pulse 99 98 90 Oximetry 08/19/18 08/19/18 08/19/18 10:31 10:36 10:40 Temperature Pulse Rate 83 86 85 Respiratory Rate Blood Pressure Blood Pressure [Left] O2 Sat by Pulse 98 98 96 Oximetry 08/19/18 08/19/18 08/19/18 10:46 10:51 10:55 Temperature Pulse Rate 87 87 88 Respiratory Rate Blood Pressure Blood Pressure [Left] O2 Sat by Pulse 98 98 98 Oximetry 08/19/18 08/19/18 08/19/18 11:01 11:06 11:11 Temperature Pulse Rate 83 87 79 Respiratory Rate Blood Pressure Blood Pressure [Left] O2 Sat by Pulse 98 99 98 Oximetry 08/19/18 08/19/18 08/19/18 11:16 11:20 11:26 Temperature Pulse Rate 80 81 81 Respiratory Rate Blood Pressure Blood Pressure [Left] O2 Sat by Pulse 98 98 97 Oximetry 08/19/18 08/19/18 08/19/18 11:27 11:28 11:31 Temperature Pulse Rate 79 81 81 Respiratory Rate Blood Pressure 164/86 Blood Pressure [Left] O2 Sat by Pulse 94 98 Oximetry 08/19/18 08/19/18 08/19/18 11:33 11:35 11:41 Temperature Pulse Rate 82 82 78 Respiratory Rate Blood Pressure 158/80 Blood Pressure [Left] O2 Sat by Pulse 98 96 Oximetry 08/19/18 08/19/18 08/19/18 11:46 11:50 11:55 Temperature Pulse Rate 78 78 89 Respiratory Rate Blood Pressure Blood Pressure [Left] O2 Sat by Pulse 96 98 97 Oximetry 08/19/18 08/19/18 08/19/18 12:00 12:05 12:10 Temperature Pulse Rate 82 81 84 Respiratory Rate Blood Pressure Blood Pressure [Left] O2 Sat by Pulse 96 98 96 Oximetry 08/19/18 08/19/18 08/19/18 12:15 12:20 12:25 Temperature Pulse Rate 82 83 86 Respiratory Rate Blood Pressure Blood Pressure [Left] O2 Sat by Pulse 96 96 98 Oximetry 08/19/18 08/19/18 08/19/18 12:27 12:30 12:35 Temperature Pulse Rate 88 89 82 Respiratory Rate Blood Pressure 152/80 Blood Pressure [Left] O2 Sat by Pulse 93 97 97 Oximetry 08/19/18 08/19/18 08/19/18 12:40 12:45 12:50 Temperature Pulse Rate 80 88 79 Respiratory Rate Blood Pressure Blood Pressure [Left] O2 Sat by Pulse 97 99 98 Oximetry 08/19/18 08/19/18 08/19/18 12:55 13:00 13:05 Temperature Pulse Rate 81 84 86 Respiratory Rate Blood Pressure Blood Pressure [Left] O2 Sat by Pulse 99 98 98 Oximetry 08/19/18 08/19/18 08/19/18 13:10 13:15 13:20 Temperature Pulse Rate 83 83 94 H Respiratory Rate Blood Pressure Blood Pressure [Left] O2 Sat by Pulse 99 98 98 Oximetry 08/19/18 08/19/18 08/19/18 13:25 13:28 13:30 Temperature Pulse Rate 95 H 89 91 H Respiratory Rate Blood Pressure 178/86 Blood Pressure [Left] O2 Sat by Pulse 99 99 Oximetry 08/19/18 08/19/18 08/19/18 13:35 13:40 13:45 Temperature Pulse Rate 88 85 87 Respiratory Rate Blood Pressure Blood Pressure [Left] O2 Sat by Pulse 99 99 100 Oximetry 08/19/18 08/19/18 08/19/18 13:50 13:55 13:59 Temperature Pulse Rate 92 H 83 79 Respiratory Rate Blood Pressure 150/72 Blood Pressure [Left] O2 Sat by Pulse 99 98 Oximetry 08/19/18 14:00 Temperature Pulse Rate 79 Respiratory Rate Blood Pressure Blood Pressure [Left] O2 Sat by Pulse 99 Oximetry - Exam Breasts: normal Cardiovascular: Regular rate Lungs: Clear to auscultation, Normal air movement Abdomen: Present: normal appearance, soft Vulva: both: normal FHR: auscultation normal, category 1 Uterine Contraction Monitor Mode: Internal Cervical Dilatation: 3 (AROM - IUPC placed without difficulty) Cervical Effacement Percentage: 80 station: -2 Uterine Contraction Pattern: Regular Uterine Tone Measurement Phase: Contraction Uterine Contraction Intensity: Mild Extremities: normal Deep Tendon Reflex Grade: Normal +2 - Labs Labs: Abnormal Labs 08/18/18 08/18/18 08/18/18 08:26 10:37 23:06 Creatinine 0.6 L Magnesium 4.20 H Urine Creatinine 92.4 H Ur Total Protein 24 Hr 420.00 H Urine Total Protein 20 H 08/19/18 08/19/18 05:21 09:46 Creatinine Magnesium 4.40 H 4.70 H Urine Creatinine Ur Total Protein 24 Hr Urine Total Protein Laboratory Results - last 24 hr 08/18/18 08/18/18 08/19/18 23:06 23:06 05:21 Magnesium 4.20 H 4.40 H Blood Type A POSITIVE Antibody Screen Negative 08/19/18 09:46 Magnesium 4.70 H Blood Type Antibody Screen
[2018-08-19] MEDS ORDERED: AMPICILLIN/NS 1 GM/50 ML 1 GM/50 ML BAG IV SCH (14:15)
[2018-08-19] MEDS: MAGNESIUM SULFATE 40GM/1000ML 40 GM/1,000 ML BAG IV SCH (14:42)
[2018-08-19] MEDS ORDERED: SUBLIMAZE IV ONE (14:46)
--- NOTE | 2018-08-19 14:58 | Anesthesia Consultation ---
Anesthesia Consult and Med Hx Date of service: 08/19/18 - Airway Anesthetic Teeth Evaluation: Good ROM Head & Neck: Adequate Mental/Hyoid Distance: Adequate Mallampati Class: Class II Intubation Access Assessment: Probably Good - Pulmonary Exam CTA: Yes - Cardiac Exam Cardiac Exam: RRR - Pre-Operative Health Status ASA Pre-Surgery Classification: ASA3 Proposed Anesthetic Plan: Epidural - Pulmonary Hx Smoking: Yes Hx Asthma: No Hx Respiratory Symptoms: No SOB: No COPD: No Home Oxygen Therapy: No Hx Pneumonia: No Hx Sleep Apnea: No - Cardiovascular System Hx Hypertension: Yes (PIH) Hx Coronary Artery Disease: No Hx Heart Attack/AMI: No Hx Angina: No Hx Percutaneous Transluminal Coronary Angioplasty (PTCA): No Hx Cardia Arrhythmia: No Hx Pacemaker: No Hx Internal Defibrillator: No Hx Valvular Heart Disease: No Hx Heart Murmur: No Hx Peripheral Vascular Disease: No - Central Nervous System Hx Neuromuscular Disorder: No Hx Seizures: No CVA: No Hx Back Pain: No Hx Psychiatric Problems: No - Gastrointestinal Hx Ulcer: No Hx Gastroesophageal Reflux Disease: Yes - Endocrine Hx Renal Disease: No Hx Cirrhosis: No Hx Liver Disease: No Hx Insulin Dependent Diabetes: No Hx Non-Insulin Dependent Diabetes: No Hx Thyroid Disease: No Hx Hypothyroidism: No Hx Hyperthyroidism: No - Hematic Hx Anemia: No Hx Sickle Cell Disease: No - Other Systems Hx Alcohol Use: No Hx Substance Use: No Hx Cancer: No Hx Obesity: Yes (BMI 53)
[2018-08-19] MEDS ORDERED: NARCAN 2 MG/2 ML IV PRN (14:59)
[2018-08-19] MEDS: LACTATED RINGERS 1,000 ML IV SCH (15:02)
[2018-08-19] MEDS ORDERED: CYTOTEC ONE (16:15)
[2018-08-19] MEDS ORDERED: METHERGINE IM ONE (16:15)
[2018-08-19] MEDS ORDERED: fentaNYL-BUPIV 2 MCG/ML-0.125% 200 MCG/100 ML BAG EPIDURAL SCH (17:00)
--- NOTE | 2018-08-19 18:31 | Progress Note ---
Assessment and Plan Pt c/o feeling ctx, denies feeling pressure at this time. Some variables noted in FHT, SVE now 9/100/0. NICU CN called and made aware of pending delivery. Anticipate . - Patient Problems (1) 34 weeks gestation of Current Visit: Yes Status: Acute (2) BMI 50.0-59.9, adult Current Visit: Yes Status: Acute (3) Pre-eclampsia in third trimester Current Visit: Yes Status: Acute Subjective - Subjective Date of service: 08/19/18 Principal diagnosis: IUP 34+1; Preeclampsia with severe features Patient reports: new complaints (cpmfortable with epidural), contractions, no vaginal bleeding Objective - Vital Signs Vital Signs: Vital Signs - 12hr 08/19/18 08/19/18 08/19/18 06:28 07:34 07:35 Temperature 98.4 F Pulse Rate 76 85 Respiratory 20 Rate Blood Pressure 147/78 146/73 O2 Sat by Pulse 100 99 Oximetry 08/19/18 08/19/18 08/19/18 07:39 07:44 07:49 Temperature Pulse Rate 87 81 82 Respiratory Rate Blood Pressure O2 Sat by Pulse 100 98 98 Oximetry 08/19/18 08/19/18 08/19/18 07:54 07:59 08:04 Temperature Pulse Rate 80 82 83 Respiratory Rate Blood Pressure O2 Sat by Pulse 98 98 98 Oximetry 08/19/18 08/19/18 08/19/18 08:09 08:14 08:19 Temperature Pulse Rate 81 82 79 Respiratory Rate Blood Pressure O2 Sat by Pulse 98 96 98 Oximetry 08/19/18 08/19/18 08/19/18 08:24 08:27 08:29 Temperature Pulse Rate 83 86 85 Respiratory Rate Blood Pressure 156/73 O2 Sat by Pulse 98 90 97 Oximetry 08/19/18 08/19/18 08/19/18 08:34 08:39 08:44 Temperature Pulse Rate 77 84 81 Respiratory Rate Blood Pressure O2 Sat by Pulse 97 97 97 Oximetry 08/19/18 08/19/18 08/19/18 08:49 08:54 08:59 Temperature Pulse Rate 76 84 80 Respiratory Rate Blood Pressure O2 Sat by Pulse 98 97 97 Oximetry 08/19/18 08/19/18 08/19/18 09:04 09:09 09:14 Temperature Pulse Rate 80 83 60 Respiratory Rate Blood Pressure O2 Sat by Pulse 97 97 73 L Oximetry 08/19/18 08/19/18 08/19/18 09:19 09:20 09:25 Temperature Pulse Rate 67 68 76 Respiratory Rate Blood Pressure O2 Sat by Pulse 80 L 73 L 99 Oximetry 08/19/18 08/19/18 08/19/18 09:28 09:31 09:36 Temperature Pulse Rate 92 H 78 84 Respiratory Rate Blood Pressure 177/88 O2 Sat by Pulse 91 99 97 Oximetry 08/19/18 08/19/18 08/19/18 09:38 09:39 09:40 Temperature Pulse Rate 62 80 80 Respiratory Rate Blood Pressure 171/92 O2 Sat by Pulse 87 99 Oximetry 08/19/18 08/19/18 08/19/18 09:45 09:50 09:56 Temperature Pulse Rate 77 82 79 Respiratory Rate Blood Pressure 146/67 O2 Sat by Pulse 99 100 99 Oximetry 08/19/18 08/19/18 08/19/18 10:00 10:06 10:11 Temperature Pulse Rate 79 81 81 Respiratory Rate Blood Pressure O2 Sat by Pulse 99 98 98 Oximetry 08/19/18 08/19/18 08/19/18 10:15 10:20 10:26 Temperature Pulse Rate 78 86 84 Respiratory Rate Blood Pressure O2 Sat by Pulse 99 99 98 Oximetry 08/19/18 08/19/18 08/19/18 10:27 10:31 10:36 Temperature Pulse Rate 82 83 86 Respiratory Rate Blood Pressure 151/77 O2 Sat by Pulse 90 98 98 Oximetry 08/19/18 08/19/18 08/19/18 10:40 10:46 10:51 Temperature Pulse Rate 85 87 87 Respiratory Rate Blood Pressure O2 Sat by Pulse 96 98 98 Oximetry 08/19/18 08/19/18 08/19/18 10:55 11:01 11:06 Temperature Pulse Rate 88 83 87 Respiratory Rate Blood Pressure O2 Sat by Pulse 98 98 99 Oximetry 08/19/18 08/19/18 08/19/18 11:11 11:16 11:20 Temperature Pulse Rate 79 80 81 Respiratory Rate Blood Pressure O2 Sat by Pulse 98 98 98 Oximetry 08/19/18 08/19/18 08/19/18 11:26 11:27 11:28 Temperature Pulse Rate 81 79 81 Respiratory Rate Blood Pressure 164/86 O2 Sat by Pulse 97 94 Oximetry 08/19/18 08/19/18 08/19/18 11:31 11:33 11:35 Temperature Pulse Rate 81 82 82 Respiratory Rate Blood Pressure 158/80 O2 Sat by Pulse 98 98 Oximetry 08/19/18 08/19/18 08/19/18 11:41 11:46 11:50 Temperature Pulse Rate 78 78 78 Respiratory Rate Blood Pressure O2 Sat by Pulse 96 96 98 Oximetry 08/19/18 08/19/18 08/19/18 11:55 12:00 12:05 Temperature Pulse Rate 89 82 81 Respiratory Rate Blood Pressure O2 Sat by Pulse 97 96 98 Oximetry 08/19/18 08/19/18 08/19/18 12:10 12:15 12:20 Temperature Pulse Rate 84 82 83 Respiratory Rate Blood Pressure O2 Sat by Pulse 96 96 96 Oximetry 08/19/18 08/19/18 08/19/18 12:25 12:27 12:30 Temperature 98.5 F Pulse Rate 86 88 89 Respiratory 20 Rate Blood Pressure 152/80 O2 Sat by Pulse 98 93 97 Oximetry 08/19/18 08/19/18 08/19/18 12:35 12:40 12:45 Temperature Pulse Rate 82 80 88 Respiratory Rate Blood Pressure O2 Sat by Pulse 97 97 99 Oximetry 08/19/18 08/19/18 08/19/18 12:50 12:55 13:00 Temperature Pulse Rate 79 81 84 Respiratory Rate Blood Pressure O2 Sat by Pulse 98 99 98 Oximetry 08/19/18 08/19/18 08/19/18 13:05 13:10 13:15 Temperature Pulse Rate 86 83 83 Respiratory Rate Blood Pressure O2 Sat by Pulse 98 99 98 Oximetry 08/19/18 08/19/18 08/19/18 13:20 13:25 13:28 Temperature Pulse Rate 94 H 95 H 89 Respiratory Rate Blood Pressure 178/86 O2 Sat by Pulse 98 99 Oximetry 08/19/18 08/19/18 08/19/18 13:30 13:35 13:40 Temperature Pulse Rate 91 H 88 85 Respiratory Rate Blood Pressure O2 Sat by Pulse 99 99 99 Oximetry 08/19/18 08/19/18 08/19/18 13:45 13:50 13:55 Temperature Pulse Rate 87 92 H 83 Respiratory Rate Blood Pressure O2 Sat by Pulse 100 99 98 Oximetry 08/19/18 08/19/18 08/19/18 13:59 14:00 14:05 Temperature Pulse Rate 79 79 91 H Respiratory Rate Blood Pressure 150/72 O2 Sat by Pulse 99 97 Oximetry 08/19/18 08/19/18 08/19/18 14:10 14:13 14:15 Temperature Pulse Rate 83 87 89 Respiratory Rate Blood Pressure O2 Sat by Pulse 97 94 93 Oximetry 08/19/18 08/19/18 08/19/18 14:20 14:25 14:27 Temperature Pulse Rate 100 H 81 82 Respiratory Rate Blood Pressure O2 Sat by Pulse 96 98 93 Oximetry 08/19/18 08/19/18 08/19/18 14:29 14:30 14:35 Temperature Pulse Rate 78 81 83 Respiratory Rate Blood Pressure 147/81 O2 Sat by Pulse 98 97 Oximetry 08/19/18 08/19/18 08/19/18 14:40 14:45 14:50 Temperature Pulse Rate 77 80 83 Respiratory Rate Blood Pressure O2 Sat by Pulse 97 96 97 Oximetry 08/19/18 08/19/18 08/19/18 14:55 15:00 15:05 Temperature 98.5 F Pulse Rate 86 83 87 Respiratory 21 Rate Blood Pressure O2 Sat by Pulse 96 96 97 Oximetry 08/19/18 08/19/18 08/19/18 15:10 15:15 15:20 Temperature Pulse Rate 87 89 97 H Respiratory Rate Blood Pressure O2 Sat by Pulse 98 98 98 Oximetry 08/19/18 08/19/18 08/19/18 15:25 15:28 15:30 Temperature Pulse Rate 95 H 86 85 Respiratory Rate Blood Pressure 146/87 O2 Sat by Pulse 98 88 96 Oximetry 08/19/18 08/19/18 08/19/18 15:35 15:36 15:40 Temperature Pulse Rate 84 92 H 81 Respiratory Rate Blood Pressure O2 Sat by Pulse 96 94 98 Oximetry 08/19/18 08/19/18 08/19/18 15:45 15:50 15:55 Temperature Pulse Rate 82 87 92 H Respiratory Rate Blood Pressure O2 Sat by Pulse 97 96 98 Oximetry 08/19/18 08/19/18 08/19/18 16:00 16:05 16:09 Temperature Pulse Rate 85 85 Respiratory Rate Blood Pressure O2 Sat by Pulse 97 98 81 L Oximetry 08/19/18 08/19/18 08/19/18 16:10 16:15 16:20 Temperature Pulse Rate 88 87 95 H Respiratory Rate Blood Pressure O2 Sat by Pulse 98 100 100 Oximetry 08/19/18 08/19/18 08/19/18 16:22 16:25 16:31 Temperature Pulse Rate 92 H 83 90 Respiratory Rate Blood Pressure O2 Sat by Pulse 84 99 100 Oximetry 08/19/18 08/19/18 08/19/18 16:36 16:46 16:48 Temperature Pulse Rate 73 96 H 54 L Respiratory Rate Blood Pressure O2 Sat by Pulse 97 100 78 L Oximetry 08/19/18 08/19/18 08/19/18 16:51 17:05 17:06 Temperature Pulse Rate 103 H 78 84 Respiratory Rate Blood Pressure 141/81 O2 Sat by Pulse 100 99 94 Oximetry 08/19/18 08/19/18 08/19/18 17:09 17:10 17:21 Temperature Pulse Rate 85 85 75 Respiratory Rate Blood Pressure 143/78 O2 Sat by Pulse 87 96 Oximetry 08/19/18 08/19/18 08/19/18 17:24 17:26 17:31 Temperature Pulse Rate 86 81 77 Respiratory Rate Blood Pressure 120/56 O2 Sat by Pulse 100 100 Oximetry 08/19/18 08/19/18 08/19/18 17:36 17:38 17:41 Temperature Pulse Rate 86 79 79 Respiratory Rate Blood Pressure 132/57 O2 Sat by Pulse 100 100 Oximetry 08/19/18 08/19/18 08/19/18 17:46 17:51 17:54 Temperature Pulse Rate 75 80 77 Respiratory Rate Blood Pressure 126/58 O2 Sat by Pulse 100 100 Oximetry 08/19/18 08/19/18 08/19/18 17:56 18:01 18:06 Temperature Pulse Rate 73 73 73 Respiratory Rate Blood Pressure O2 Sat by Pulse 100 100 100 Oximetry 08/19/18 08/19/18 08/19/18 18:08 18:11 18:16 Temperature Pulse Rate 73 76 72 Respiratory Rate Blood Pressure 130/60 O2 Sat by Pulse 100 100 Oximetry 08/19/18 18:21 Temperature Pulse Rate 76 Respiratory Rate Blood Pressure O2 Sat by Pulse 99 Oximetry - Exam Breasts: normal Cardiovascular: Regular rate Lungs: Clear to auscultation, Normal air movement Abdomen: Present: normal appearance, soft Vulva: both: normal FHR: category 2 Uterine Contraction Monitor Mode: Internal Cervical Dilatation: 9 Cervical Effacement Percentage: 100 station: 0 Uterine Contraction Pattern: Regular Uterine Tone Measurement Phase: Contraction Uterine Contraction Intensity: Strong/Firm Extremities: normal Deep Tendon Reflex Grade: Normal +2 - Labs Labs: Abnormal Labs 08/18/18 08/18/18 08/18/18 08:26 10:37 23:06 Creatinine 0.6 L Magnesium 4.20 H Urine Creatinine 92.4 H Ur Total Protein 24 Hr 420.00 H Urine Total Protein 20 H 08/19/18 08/19/18 05:21 09:46 Creatinine Magnesium 4.40 H 4.70 H Urine Creatinine Ur Total Protein 24 Hr Urine Total Protein Laboratory Results - last 24 hr 08/18/18 08/18/18 08/19/18 23:06 23:06 05:21 Magnesium 4.20 H 4.40 H Blood Type A POSITIVE Antibody Screen Negative 08/19/18 09:46 Magnesium 4.70 H Blood Type Antibody Screen
[2018-08-19] MEDS ORDERED: PITOCin/NS 20 UNIT/1000ML DRIP 20,000 MILLIUNITS/1,000 ML BAG IV ONE (18:42)
--- NOTE | 2018-08-19 19:09 | Procedure Note ---
OB Delivery Note - Delivery Date of Delivery: 08/19/18 ( male ) [employer] Finisher: SHANIQUE ALVAREZ Estimated blood loss: 300cc - Vaginal Delivery presentation: vertex Delivery position: OA Intrapartum events: preeclampsia Delivery induction: oxytocin Delivery augmentation: rupture of membranes, pitocin Delivery monitor: external FHT, internal uterine Route of delivery: Delivery placenta: spontaneous Delivery cord: nuchal cord (loose x 1), 3 umbilical vessels Episiotomy: none Delivery laceration: none Anesthesia: epidural Delivery comments: Male infant del over intact perineum, cord clamped and cut, handed off to awaiting NICU team at [facility]. Placenta del intact and complete, sent to pathology. no laceration to repair. Infant taken to NICU in stable condition. Apgars 8/9, EBL 300. Mother to remain on labor and delivery x 24h on mag sulfate. - A at 1 minute: 8 at 5 minutes: 9 Infant Gender: Male (4#1)
[2018-08-19] MEDS ORDERED: LANSINOH TP PRN (19:10)
[2018-08-19] MEDS ORDERED: MILK OF MAGNESIA PO PRN (19:10)
[2018-08-19] MEDS ORDERED: DULCOLAX PR PRN (19:10)
[2018-08-19] MEDS ORDERED: BENADRYL PO PRN (19:10)
[2018-08-19] MEDS ORDERED: TUCKS PAD TP PRN (19:10)
[2018-08-19] MEDS ORDERED: PHENERGAN PO PRN (19:10)
[2018-08-19] MEDS ORDERED: PITOCin/NS 20 UNIT/1000ML DRIP 20 UNITS/1,000 ML BAG IV SCH ×2 (20:00→21:00)
[2018-08-19] MEDS ORDERED: SODIUM CHLORIDE FLUSH SYRINGE 10 ML IV NR (20:00)
[2018-08-19] MEDS: IBUPROFEN PO SCH (21:03)
[2018-08-20] MEDS: IBUPROFEN PO SCH ×3 (03:45→17:00)
[2018-08-20] MEDS: TYLENOL PO PRN ×2 (06:42→21:47)
[2018-08-20] MEDS: LACTATED RINGERS 1,000 ML IV SCH ×3 (06:43→10:23)
[2018-08-20] MEDS: MAGNESIUM SULFATE 40GM/1000ML 40 GM/1,000 ML BAG IV SCH ×2 (06:45→10:24)
--- NOTE | 2018-08-20 07:55 | Progress Note ---
Assessment and Plan PPD1 s/p . Patient resting in bed, reports pain of 0, comfortable, denies any complaints or concerns. Magnesium currently infusing. Kapoor in place, draining clear yellow urine. Fundus is firm, ML, U/1. VB is scant, patient denies any heavy bleeding or clots. Reviewed BPs with pt, 140s-160s/70s-80s, consult with Dr. Latham r/t possibility of initiating PO BP medication. Pt denies any PEPPER, visual disturbances, RUQ or epigastric pain. DTRs 2+. Assessment WNL. VSSAF. Most recent mag level 5.3 at 0051. Awaiting results of post delivery H&H and next mag level. Reviewed current POC with pt, mag to be discontinued 24 hrs post delivery, will continue to monitor BPs overnight and consider for discharge tomorrow. Patient verbalizes understanding. Pt reports infant remains in NICU, doing well. All questions addressed. Continue current POC. Subjective - Subjective Date of service: 08/20/18 Principal diagnosis: PPD1 s/p magnesium for PIH with severe features Interval history: Menstrual History Regularity: regular Duration: 5 LMP: 12/23/2017 LMP reliability: definite LMP character: normal test type: urine test Date: 07/04/2018 BC at conception: none EDC Calculations LMP: 09/29/2018 EDC Confirmation: 09/29/2018 Gestational Age: 27 4/7 weeks Past History : 2 Term Births: 1 Premature Births: 0 Living Children: 1 Para: 1 Mult. Births: 0 Prev : 0 Aborta: 0 Elect. Ab: 0 Spont. Ab: 0 Ectopics: 0 # 1 Delivery date: 10/28/2007 Weeks Gestation: 38 labor: no Delivery type: Hours of labor: 48 Anesthesia type: epidural Delivery location: [place] Infant Sex: Female weight: 6-6 Name: Deanna Comments: Induction for abnormal testing Past Medical History: Negative Past Medical History Past Surgical History: Cholecystectomy (2008) Family History Summary: Other family member - Has No Family History of Ovarvian Cancer - Entered On: 07/04/2018 Other family member - Has No Family History of Colon Cancer - Entered On: 07/04/2018 Other family member - Has Family History of Pancreatic Cancer - Entered On: 07/04/2018 Other family member - Has Family History of Hypertension - Entered On: 07/04/2018 Other family member - Has Family History of Diabetes - Entered On: 07/04/2018 Other family member - Has Family History of Depression - Entered On: 07/04/2018 Other family member - Has Family History of Coronary Heart Disease - Entered On: 07/04/2018 Other family member - Has Family History Breast Cancer - Entered On: 07/04/2018 General Comments - FH: Lupus Social History: Marital Status: Single Children: 1 Occupation: unemployed daycare Risk Factors: Smoked Tobacco Use: Current every day smoker Cigarettes: Yes -- 1 pack(s) per day, Year started: 2006 Years smoked: 12 Counseled to quit/cut down: yes Drug use: no HIV high-risk behavior: low risk Alcohol use: yes Drinks per day: social Dietary Counseling: pn yes PAP Smear History: Date of Last PAP Smear: 02/20/2018 Results: normal Past Medical History Surgery (Non-golf manager): Cholecystectomy (2008) Abnormal PAP: positive, ?cryo Uterine Anomaly: negative Family Hx: Lupus Social Hx: Marital Status: Single Children: 1 Occupation: unemployed daycare Infection History Hx of STD: none HIV Risk Eval: low risk Personal hx. of genital herpes: no Genetic History Congenital Heart Defect: Mom: no Dad: no Porter Disease: Mom: no Dad: no Thalassemia Mom: no Dad: no Neural Tube Defect Mom: no Dad: no Down's Syndrome Mom: no Dad: no Rajinder-Sachs Mom: no Dad: no Sickle Cell Disease/Trait Mom: no Dad: yes Hemophilia Mom: no Dad: no Muscular Dystrophy Mom: no Dad: no Cystic Fibrosis Mom: no Dad: no [place] Chorea Mom: no Dad: no Mental Retardation Mom: no Dad: no Fragile X Mom: no Dad: no Other Genetic/Chromosomal Disorder Mom: no Dad: no Child w/other defect Mom: no Dad: no Enviromental Exposures Xray Exposure: no Medication, drug, or alcohol use since LMP: yes Exposure to Cat Liter: yes Occupational Exposure to Children: daycare Current Allergies (reviewed today): No known allergies Patient reports: appetite normal, pain well controlled : in NICU Objective - Vital Signs Latest vital signs: Vital Signs Temp Pulse Resp BP Pulse Ox 08/20/18 07:41 70 98 08/20/18 06:46 72 148/84 08/20/18 05:46 75 144/78 08/20/18 04:46 75 160/83 08/20/18 03:46 70 167/91 08/20/18 03:45 81 173/100 08/20/18 02:46 73 143/72 08/20/18 01:46 79 145/76 08/20/18 01:45 97.3 F L 08/20/18 00:46 94 H 137/70 08/19/18 23:46 90 142/67 08/19/18 22:46 83 142/78 08/19/18 21:47 93 H 154/71 08/19/18 21:45 97.2 F L 08/19/18 20:45 96 H 140/84 99 08/19/18 19:06 76 140/67 08/19/18 19:00 98.4 F 20 08/19/18 18:54 81 167/72 08/19/18 18:41 85 98 08/19/18 18:39 91 H 146/68 08/19/18 18:36 92 H 100 08/19/18 18:31 89 100 08/19/18 18:26 81 100 08/19/18 18:21 76 99 08/19/18 18:16 72 100 08/19/18 18:11 76 100 08/19/18 18:08 73 130/60 08/19/18 18:06 73 100 08/19/18 18:01 73 100 08/19/18 17:56 73 100 08/19/18 17:54 77 126/58 08/19/18 17:51 80 100 08/19/18 17:46 75 100 08/19/18 17:41 79 100 08/19/18 17:38 79 132/57 08/19/18 17:36 86 100 08/19/18 17:31 77 100 08/19/18 17:26 81 100 08/19/18 17:24 86 120/56 08/19/18 17:21 75 96 08/19/18 17:10 85 87 08/19/18 17:09 85 143/78 08/19/18 17:06 84 141/81 94 08/19/18 17:05 78 99 08/19/18 17:00 98.5 F 20 08/19/18 16:51 103 H 100 08/19/18 16:48 54 L 78 L 08/19/18 16:46 96 H 100 08/19/18 16:36 73 97 08/19/18 16:31 90 100 08/19/18 16:25 83 99 08/19/18 16:22 92 H 84 08/19/18 16:20 95 H 100 08/19/18 16:15 87 100 08/19/18 16:10 88 98 08/19/18 16:09 81 L 08/19/18 16:05 85 98 08/19/18 16:00 85 97 08/19/18 15:55 92 H 98 08/19/18 15:50 87 96 08/19/18 15:45 82 97 08/19/18 15:40 81 98 08/19/18 15:36 92 H 94 08/19/18 15:35 84 96 08/19/18 15:30 85 96 08/19/18 15:28 86 146/87 88 08/19/18 15:25 95 H 98 08/19/18 15:20 97 H 98 08/19/18 15:15 89 98 08/19/18 15:10 87 98 08/19/18 15:05 87 97 08/19/18 15:00 98.5 F 83 21 96 08/19/18 14:55 86 96 08/19/18 14:50 83 97 08/19/18 14:45 80 96 08/19/18 14:40 77 97 08/19/18 14:35 83 97 08/19/18 14:30 81 98 08/19/18 14:29 78 147/81 08/19/18 14:27 82 93 08/19/18 14:25 81 98 08/19/18 14:20 100 H 96 08/19/18 14:15 89 93 08/19/18 14:13 87 94 08/19/18 14:10 83 97 08/19/18 14:05 91 H 97 08/19/18 14:00 79 99 08/19/18 13:59 79 150/72 08/19/18 13:55 83 98 08/19/18 13:50 92 H 99 08/19/18 13:45 87 100 08/19/18 13:40 85 99 08/19/18 13:35 88 99 08/19/18 13:30 91 H 99 08/19/18 13:28 89 178/86 08/19/18 13:25 95 H 99 08/19/18 13:20 94 H 98 08/19/18 13:15 83 98 08/19/18 13:10 83 99 08/19/18 13:05 86 98 08/19/18 13:00 84 98 08/19/18 12:55 81 99 08/19/18 12:50 79 98 08/19/18 12:45 88 99 08/19/18 12:40 80 97 08/19/18 12:35 82 97 08/19/18 12:30 98.5 F 89 20 97 08/19/18 12:27 88 152/80 93 08/19/18 12:25 86 98 08/19/18 12:20 83 96 08/19/18 12:15 82 96 08/19/18 12:10 84 96 08/19/18 12:05 81 98 08/19/18 12:00 82 96 08/19/18 11:55 89 97 08/19/18 11:50 78 98 08/19/18 11:46 78 96 08/19/18 11:41 78 96 08/19/18 11:35 82 98 08/19/18 11:33 82 158/80 08/19/18 11:31 81 98 08/19/18 11:28 81 164/86 08/19/18 11:27 79 94 08/19/18 11:26 81 97 08/19/18 11:20 81 98 08/19/18 11:16 80 98 08/19/18 11:11 79 98 08/19/18 11:06 87 99 08/19/18 11:01 83 98 08/19/18 10:55 88 98 08/19/18 10:51 87 98 08/19/18 10:46 87 98 08/19/18 10:40 85 96 08/19/18 10:36 86 98 08/19/18 10:31 83 98 08/19/18 10:27 82 151/77 90 08/19/18 10:26 84 98 08/19/18 10:20 86 99 08/19/18 10:15 78 99 08/19/18 10:11 81 98 08/19/18 10:06 81 98 08/19/18 10:00 79 99 08/19/18 09:56 79 99 08/19/18 09:50 82 146/67 100 08/19/18 09:45 77 99 08/19/18 09:40 80 99 08/19/18 09:39 80 171/92 08/19/18 09:38 62 87 08/19/18 09:36 84 97 08/19/18 09:31 78 99 08/19/18 09:28 92 H 177/88 91 08/19/18 09:25 76 99 08/19/18 09:20 68 73 L 08/19/18 09:19 67 80 L 08/19/18 09:14 60 73 L 08/19/18 09:09 83 97 08/19/18 09:04 80 97 08/19/18 08:59 80 97 08/19/18 08:54 84 97 08/19/18 08:49 76 98 08/19/18 08:44 81 97 08/19/18 08:39 84 97 08/19/18 08:34 77 97 08/19/18 08:29 85 97 08/19/18 08:27 86 156/73 90 08/19/18 08:24 83 98 08/19/18 08:19 79 98 08/19/18 08:14 82 96 08/19/18 08:09 81 98 08/19/18 08:04 83 98 08/19/18 07:59 82 98 08/19/18 07:54 80 98 08/19/18 07:49 82 98 Intake and Output 08/19/18 08/19/18 08/20/18 15:59 23:59 07:59 Intake Total 6199.254 8038 1342.5 Output Total 1999 550 1750 Balance -875.933 700 -407.5 Intake: IV 3466.946 7868 802.5 Lactated Ringers 1,000 ml 1000 @ 125 mls/hr IV DIRECT [facility] Rx#:[id number] MAGNESIUM SULFATE 40GM/ 1000 802.5 1000ML 40 gm In 1,000 ml @ 2 GM/HR 50 mls/hr IV DIRECT [facility] Rx#:[id number] PITOCin/NS 30 UNIT/500ML 24.067 30 units In 500 ml @ 4 MILLIUNITS/MIN 4 mls/hr IV TITR [facility] Rx#:[id number] Oral 100 250 540 Output: Urine 1999 550 1750 Indwelling Catheter 1999 550 1750 Other: Total, Intake Amount 100 250 540 Total, Output Amount 150 150 400 Estimated Blood Loss 300 - Exam Cardiovascular: Present: Regular rate, Normal S1, Normal S2 Lungs: Present: Clear to auscultation, Normal air movement Abdomen: Present: normal appearance, soft, normal bowel sounds Vulva: both: normal Uterus: Present: normal, firm, fundal height below umbilicus Extremities: Present: normal Deep Tendon Reflex Grade: Normal +2 - Labs Labs: Abnormal lab results 08/19/18 08/19/18 08/20/18 Range/Units 09:46 20:01 00:51 Magnesium 4.70 H 4.70 H 5.30 H (1.7-2.3) mg/dL
[2018-08-20 08:38] LABS: Hematocrit 36.6 % (30.3-42.9); Hemoglobin 12.2 gm/dl (10.1-14.3)
[2018-08-20] MEDS: NORMODYNE PO SCH ×2 (10:09→21:48)
[2018-08-20] MEDS: PRENATAL VITAMIN PO SCH (10:09)
[2018-08-20] MEDS ORDERED: M-M-R II VACCINE SUB-Q ONE (19:10)
[2018-08-20] MEDS ORDERED: APRESOLINE IV ONE (19:15)
[2018-08-21] MEDS: IBUPROFEN PO SCH ×2 (07:55→14:23)
--- NOTE | 2018-08-21 08:33 | Progress Note ---
Assessment and Plan Pt in good spirits has started to pump and states that is going well. BP 130/70 FF below umb Lochia small Perineum intact H&H stable No s/sx of anemia Doing well s/p vag delivery P: continue pathway Will plan d/c tomorrow Subjective - Subjective Date of service: 08/21/18 (pt req d/c tomorrow baby remains in NICU) Principal diagnosis: PPD2 s/p PIH with severe features Patient reports: appetite normal, voiding normally, pain well controlled, ambulating normally [place]: in NICU Objective - Vital Signs Latest vital signs: Vital Signs Temp Pulse Resp BP Pulse Ox 08/21/18 04:29 98.0 F 80 16 136/68 94 08/21/18 01:34 98.6 F 74 18 118/55 97 08/20/18 22:38 98.2 F 82 18 136/65 94 08/20/18 21:48 175/90 08/20/18 21:09 81 175/90 08/20/18 20:22 78 176/93 08/20/18 20:05 75 174/98 08/20/18 19:50 78 173/94 08/20/18 19:16 78 173/94 08/20/18 19:06 82 174/92 08/20/18 19:00 99.1 F 18 08/20/18 18:56 82 172/95 08/20/18 18:16 71 153/84 08/20/18 18:12 77 166/90 08/20/18 18:11 79 98 08/20/18 18:06 76 98 08/20/18 18:01 80 98 08/20/18 17:56 77 99 08/20/18 17:51 75 99 08/20/18 17:46 84 96 08/20/18 17:41 78 99 08/20/18 17:36 84 99 08/20/18 17:32 79 158/80 08/20/18 17:31 83 99 08/20/18 17:26 82 100 08/20/18 17:22 81 160/82 08/20/18 17:21 76 100 08/20/18 17:19 84 167/86 08/20/18 17:17 75 163/76 08/20/18 17:16 78 100 07/10/19 17:11 78 100 08/20/18 17:06 80 100 08/20/18 17:02 77 165/82 08/20/18 15:34 78 144/78 08/20/18 14:40 83 157/84 08/20/18 14:28 81 154/81 08/20/18 13:46 81 180/86 08/20/18 13:29 78 165/88 08/20/18 12:46 82 190/90 08/20/18 12:00 98.7 F 20 08/20/18 11:46 92 H 146/82 08/20/18 10:46 88 153/81 08/20/18 10:09 70 144/88 08/20/18 10:03 70 144/88 08/20/18 09:46 72 160/93 08/20/18 08:53 98.4 F 08/20/18 08:46 70 137/71 Intake and Output 08/20/18 08/21/18 08/21/18 22:59 06:59 14:59 Intake Total 500 300 Output Total 800 200 Balance -300 100 Intake: Oral 500 Intake, Free Water 300 Output: Urine 800 200 Indwelling Catheter 800 Void 200 Other: Total, Intake Amount 500 Total, Output Amount 800 200 # Voids Void 1 # Bowel Movements 1 - Exam Breasts: Present: normal (pt has begun to pump) Cardiovascular: Present: Regular rate Lungs: Present: Normal air movement Abdomen: Present: normal appearance, soft, normal bowel sounds Uterus: Present: normal, fundal height below umbilicus Extremities: Present: normal, edema Incision: Present: normal - Labs Labs: Abnormal lab results 08/20/18 08/20/18 Range/Units 08:09 13:34 Magnesium 5.20 H 5.10 H (1.7-2.3) mg/dL
[2018-08-21] MEDS: NORMODYNE PO SCH ×2 (12:49→21:53)
[2018-08-21] MEDS: PRENATAL VITAMIN PO SCH (12:49)
[2018-08-22] MEDS: IBUPROFEN PO SCH ×3 (00:17→08:04)
--- NOTE | 2018-08-22 08:51 | Discharge Summary ---
Providers - Providers Date of Admission: 08/18/18 14:13 Date of discharge: 08/22/18 Attending physician: ARNULFO DOBSON 08/19/18 09:53 Consult to Physician [CONS] Routine Comment: Consulting Provider: SÁNCHEZ CASTILLO Physician Instructions: Reason For Exam: 34 weeks preeclampsia, severe features Primary care physician: ARNULFO DOBSON Hospitalization Reason for admission: pre-eclampsia Condition: Good Pertinent studies: H&H 12.2/36.6 Procedures: Hospital course: delivery and course complicated by pre-e Disposition: DC-01 TO HOME OR SELFCARE - Discharge Diagnoses (1) BMI 50.0-59.9, adult Status: Acute (2) Pre-eclampsia in third trimester Status: Acute (3) (spontaneous vaginal delivery) Status: Acute Core Measure Documentation - Palliative Care Palliative Care/ Comfort Measures: Not Applicable - Core Measures Any of the following diagnoses?: none Exam - Constitutional Vitals: Temp Pulse Resp BP Pulse Ox 98.0 F 77 20 120/63 96 08/22/18 01:21 08/22/18 01:21 08/22/18 05:57 08/22/18 01:21 08/22/18 01:21 General appearance: Present: no acute distress, well-nourished - EENT Eyes: Present: PERRL ENT: hearing intact, clear oral mucosa - Neck Neck: Present: supple, normal ROM - Respiratory Respiratory effort: normal Respiratory: bilateral: CTA - Cardiovascular Heart Sounds: Present: S1 & S2. Absent: rub, click - Extremities Extremities: pulses symmetrical, No edema Peripheral Pulses: within normal limits - Abdominal General gastrointestinal: Present: soft, non-tender, non-distended, normal bowel sounds Female genitourinary: Present: normal - Integumentary Integumentary: Present: clear, warm, dry - Musculoskeletal Musculoskeletal: gait normal, strength equal bilaterally - Psychiatric Psychiatric: appropriate mood/affect, intact judgment & insight - Neurologic Neurologic: CNII-XII intact, moves all extremities - Additional findings Additional findings: lochia scant, fundus firm, pumping breastmilk, denies PEPPER/visual changes or epigastric pain Plan Activity: no restrictions Diet: low salt Follow up with: ARNULFO DOBSON MD [Primary Care Provider] - 7 Days (Congratulations! Please call [phone] to schedule a blood pressure check in 1 week. Call for any complaints of headache, upper abdominal pain or changes in your vision.) Prescriptions: Labetalol [Labetalol 200mg TAB] 200 mg PO BID #60 tablet
[2018-08-22] MEDS: NORMODYNE PO SCH (09:34)
[2018-08-22] MEDS: PRENATAL VITAMIN PO SCH (09:34)
[2018-08-22 09:36] VITALS: BP 152/80
== END 2018-08-22 14:00 | disposition home or self-care (01) | DRG 774 ==
LOC: TRG 09:54 → LD 14:13 → OB 08-20 22:33
PROVIDERS: ADMIT Obstetrics & Gynecology; ATTEND Obstetrics & Gynecology
PROC: 10E0XZZ Delivery of Products of Conception, External Approach (ICD-10-PCS; principal; 2018-08-19)
PROC: 3E033VJ Introduction of Other Hormone into Peripheral Vein, Percutaneous Approach (ICD-10-PCS; 2018-08-19)
PROC: 3E0R3BZ Introduction of Anesthetic Agent into Spinal Canal, Percutaneous Approach (ICD-10-PCS; 2018-08-19)
PROC: 00HU33Z Insertion of Infusion Device into Spinal Canal, Percutaneous Approach (ICD-10-PCS; 2018-08-19)
PROC: 3E0234Z Introduction of Serum, Toxoid and Vaccine into Muscle, Percutaneous Approach (ICD-10-PCS; 2018-08-20)
DX: O11.4 Pre-existing hypertension with pre-eclampsia, complicating childbirth (principal); O99.62 Diseases of the digestive system complicating childbirth; K21.9 Gastro-esophageal reflux disease without esophagitis; O99.214 Obesity complicating childbirth; E66.9 Obesity, unspecified; O69.81X0 Labor and delivery complicated by cord around neck, without compression, not applicable or unspecified; Z37.0 Single live birth; Z82.49 Family history of ischemic heart disease and other diseases of the circulatory system; Z83.3 Family history of diabetes mellitus; Z80.3 Family history of malignant neoplasm of breast; Z3A.34 34 weeks gestation of pregnancy; Z23 Encounter for immunization
CPT/HCPCS: 36415; 76815; 82565; 82570; 83615; 83735; 84156; 84450; 84460; 84550; 85014; 85018; 85027; 86850; 86900; 86901; 87116; 87806; 88307; 90707; G0378; J0290; J0360; J0702; J2210; J2590; J3010; J3475; J7120

== ENCOUNTER 2018-09-19 16:22 | Emergency (ER) | payer MEDICAID ==
--- NOTE | 2018-09-19 16:39 | Event Note ---
ED Screening Note Date of service: 09/19/18 Time: 16:34 ED Screening Note: This is a 33 y.o. F. that presents to the ER with elevated blood pressure. Patient was started on blood pressure medication after vaginal delivery 1 month ago. PMH gestational HTN Denies chest pain, palpitations, visual changes, dizzines, or headache. Patient was sent here from [facility] because blood pressure was elevated. Patient states she didn't take medication today or yesterday. This initial assessment/diagnostic orders/clinical plan/treatment(s) is/are subject to change based on patients health status, clinical progression and re- assessment by fellow clinical providers in the ED. Further treatment and workup at subsequent clinical providers discretion. Patient/guardian urged not to elope from the ED as their condition may be serious if not clinically assessed and managed. Initial orders include:
[2018-09-19 17:03] VITALS: BP 208/130
[2018-09-19] MEDS ORDERED: CATAPRES PO ONE (17:06)
--- NOTE | 2018-09-19 17:39 | Emergency Department Report ---
ED General Adult HPI - General Chief complaint: High BP Stated complaint: HIGH BP Time Seen by Provider: 09/19/18 16:34 Source: patient Mode of arrival: Ambulatory Limitations: No Limitations - History of Present Illness Initial comments: 33-year-old -German female 4 weeks with history of hypertension, currently taking labetalol 200 mg twice a day with advised to come to emergency department by her [employer] after she was found have a blood pressure 185/110. States she has not taken her labetalol last night or this morning and thinks this is due to hypertension and states she is totally asymptomatic. She reports no chest pain palpitations. No nausea, vomiting, no headache or presyncope. No known no blurry vision. She reports no vaginal bleeding or pelvic cramping. She reports usual compliance of her medication but that didn't change management director the past couple days. She states that she doesn't live down in [place] and is racing against time trying to cut a transport vehicle and states she would like to be here by 5:30. She is unsure of her usual blood pressure while compliant with the labetalol, but denies any side effects from the medication Radiation: non-radiation Associated Symptoms: denies other symptoms Treatments Prior to Arrival: none - Related Data Previous Rx's Medication Instructions Recorded Last Taken Type Labetalol [Labetalol 200mg TAB] 200 mg PO BID #60 tablet 08/22/18 Unknown Rx Allergies Allergy/AdvReac Type Severity Reaction Status Date / Time No Known Allergies Allergy Verified 09/19/18 16:27 ED Review of Systems ROS: Stated complaint: HIGH BP Other details as noted in HPI Comment: All other systems reviewed and negative ED Past Medical Hx - Past Medical History Hx Hypertension: Yes (PIH) Hx Heart Attack/AMI: No Hx Diabetes: No Hx Deep Vein Thrombosis: No Hx Liver Disease: No Hx Renal Disease: No Hx Sickle Cell Disease: No Hx Seizures: No Hx Asthma: No Hx COPD: No Hx HIV: No - Surgical History Hx Pacemaker: No Hx Internal Defibrillator: No Hx Cholecystectomy: Yes - Social History Smoking Status: Current Every Day Smoker Substance Use Type: None - Medications Home Medications: Home Medications Medication Instructions Recorded Confirmed Last Taken Type Labetalol [Labetalol 200mg TAB] 200 mg PO BID #60 tablet 08/22/18 Unknown Rx ED Physical Exam - General Limitations: No Limitations General appearance: alert, in no apparent distress, obese - Head Head exam: Present: atraumatic, normocephalic - Eye Eye exam: Present: normal appearance - ENT ENT exam: Present: mucous membranes moist - Neck Neck exam: Present: normal inspection - Respiratory Respiratory exam: Present: normal lung sounds bilaterally. Absent: respiratory distress - Cardiovascular Cardiovascular Exam: Present: regular rate, normal rhythm. Absent: systolic murmur, diastolic murmur, rubs, gallop - GI/Abdominal GI/Abdominal exam: Present: soft, normal bowel sounds - Extremities Exam Extremities exam: Present: normal inspection - Back Exam Back exam: Present: normal inspection - Neurological Exam Neurological exam: Present: alert, oriented X3 - Psychiatric Psychiatric exam: Present: normal affect, normal mood - Skin Skin exam: Present: warm, dry, intact, normal color. Absent: rash ED Course Vital Signs 09/19/18 09/19/18 09/19/18 16:28 17:02 17:14 Temperature 98.4 F 98.7 F Pulse Rate 76 77 80 Respiratory 18 18 Rate Blood Pressure 185/114 208/130 Blood Pressure 208/130 [Left] O2 Sat by Pulse 99 100 Oximetry ED Medical Decision Making - Medical Decision Making 33-year-old female with asymptomatic hypertension. She was given clonidine 0.21. I would not able to reevaluate her blood pressure as she left AGAINST MEDICAL ADVICE to catch the transportation to [place]. Advised of the need to get her blood pressure under more tight control while here in the ED as just before the clonidine was provided. Her systolic was a little bit more than 200 and diastolic was over 100. She reports no chest pain, palpitation or shortness of breath. No blurred vision. No headache or neck. No urine was no urine was received Critical care attestation.: If time is entered above; I have spent that time in minutes in the direct care of this critically ill patient, excluding procedure time. ED Disposition Clinical Impression: Hypertension Disposition: - LEFT AGAINST MED ADVICE Is pt being admited?: No Does the pt Need Aspirin: No Condition: Undetermined Instructions: Hypertension (ED) Forms: AMA Form
== END 2018-09-19 17:38 | disposition left against medical advice (07) ==
LOC: ED 16:22
DX: O16.5 Unspecified maternal hypertension, complicating the puerperium (principal); F17.200 Nicotine dependence, unspecified, uncomplicated; Z90.49 Acquired absence of other specified parts of digestive tract; Z79.899 Other long term (current) drug therapy
CPT/HCPCS: 99282